=== PATIENT | male | born 1990 | race Caucasian/White ===

== ENCOUNTER 2016-09-22 12:46 | Emergency (ER) | payer SELFPAY ==
[~2016-09-22] VITALS: Ht 182.9 cm; Wt 129.0 kg
[~2016-09-22 12:46] MED LIST: ALBUTEROL SULF8.5 GM IH; ATARAX,VISTARIL25 MG PO; CLARITIN10 M3 PO; FLONASE16 G1 BOTH NARES; PREDNISONE20 MG PO; WELLBUTRIN XL150 MG PO
[2016-09-22 14:34] LABS: HEMATOCRIT 42.8 % (38.0-50.0); MCH 29.4 PG (29.0-34.0); MCHC 32.9 G/DL (30.0-36.0); MCV 89.4 FL (86-99); MEAN PLAT.VOLUME 9.4 uM^3 (9.0-12.4); PLATELET COUNT 231 K/uL (156-360); RBC DIS.WIDTH-CV 13.7 % (11.8-14.6); RBC DIS.WIDTH-SD 44.7 % (39-53); RED BLOOD COUNT 4.79 M/uL (4.00-5.50); WHITE BLOOD COUNT 10.4 K/uL (4.1-10.2)
[2016-09-22 14:43] LABS: CHLORIDE 106 mEq/L (99-109); POTASSIUM 4.4 mEq/L (3.7-5.4); SODIUM 139 mEq/L (136-147)
[2016-09-22 14:45] LABS: GLUCOSE 93 mg/dL (70-99)
[2016-09-22 14:46] LABS: ANION GAP 10 MEQ/L (2-14)
[2016-09-22 14:47] LABS: TOTAL BILIRUBIN 0.6 mg/dL (0.0-1.0)
[2016-09-22 14:48] LABS: SERUM ETHYL ALCOHOL < 10 mg/dL
[2016-09-22 14:49] LABS: ALKALINE PHOSPHATASE 61 IU/L (3-129); GFR ESTIMATE (CALCULATED) > 59 mL/min/
[2016-09-22 14:50] LABS: UREA NITROGEN (BUN) 5 mg/dL (9-23)
[2016-09-22] MEDS ORDERED: LIBRIUM25 MG PO (14:53)
[2016-09-22 15:07] VITALS: BP 134/80
== END 2016-09-22 15:08 | disposition home or self-care (01) ==
LOC: EME 12:46
PROVIDERS: Emergency Medicine
DX: F13.10 Sedative, hypnotic or anxiolytic abuse, uncomplicated (principal); F43.23 Adjustment disorder with mixed anxiety and depressed mood; F17.200 Nicotine dependence, unspecified, uncomplicated
CPT/HCPCS: 80053; 81003; 85027; 90839; 99281; 99284; G0480

== ENCOUNTER 2017-02-20 15:34 | Inpatient (IN) | payer OTHER ==
[~2017-02-20] VITALS: Ht 182.9 cm; Wt 122.8 kg
[~2017-02-20 15:34] MED LIST changes: +LIBRIUM25 MG PO
[2017-02-20 16:32] LABS: HEMATOCRIT 40.2 % (38.0-50.0); MCH 34.4 PG (29.0-34.0); MCHC 34.8 G/DL (30.0-36.0); MCV 98.8 FL (86-99); MEAN PLAT.VOLUME 8.8 uM^3 (9.0-12.4); PLATELET COUNT 325 K/uL (156-360); RBC DIS.WIDTH-CV 20.1 % (11.8-14.6); RBC DIS.WIDTH-SD 69.6 % (39-53); RED BLOOD COUNT 4.07 M/uL (4.00-5.50); WHITE BLOOD COUNT 12.6 K/uL (4.1-10.2)
[2017-02-20 16:42] LABS: CHLORIDE 108 mEq/L (99-109); POTASSIUM 3.7 mEq/L (3.7-5.4); SODIUM 139 mEq/L (136-147)
[2017-02-20 16:44] LABS: GLUCOSE 99 mg/dL (70-99)
[2017-02-20 16:46] LABS: ANION GAP 9 MEQ/L (2-14)
[2017-02-20 16:47] LABS: SERUM ETHYL ALCOHOL < 10 mg/dL
[2017-02-20 16:48] LABS: GFR ESTIMATE (CALCULATED) > 59 mL/min/
[2017-02-20 16:49] LABS: UREA NITROGEN (BUN) 5 mg/dL (9-23)
[2017-02-20 17:00] LABS: COCAINE NEGATIVE (150 ng/mL); METHAMPHETAMINE NEGATIVE (500 ng/mL); OPIATES (MORPHINE) NEGATIVE (100 ng/mL); PHENCYCLIDINE NEGATIVE (25 ng/mL); THC CANNABINOIDS NEGATIVE (50 ng/mL)
[2017-02-20 17:01] LABS: AMPHETAMINE NEGATIVE (500 ng/mL); BARBITURATES NEGATIVE (200 ng/mL); BENZODIAZEPINES NEGATIVE (150 ng/mL); INTERNAL CONTROLS VALID? YES; METHADONE NEGATIVE (200 ng/mL); OXYCODONE NEGATIVE (100 ng/mL); PROPOXYPHENE NEGATIVE (300 ng/mL); TRICYCLIC ANTIDEPRESSANTS NEGATIVE (300 ng/mL)
[2017-02-20] MEDS ORDERED: LEXAPRO20 MG PO (22:02)
[2017-02-20] MEDS ORDERED: METOPROLOL SUC100 MG PO (22:03)
[2017-02-20] MEDS ORDERED: BUSPAR5 MG PO (22:05)
[2017-02-20] MEDS ORDERED: NICORETTE2 M1 BC (22:05)
[2017-02-20] MEDS ORDERED: NICODERM CQ1 EAC2 TD (22:06)
[2017-02-20 22:10] VITALS: BP 132/94
[2017-02-21 08:07] VITALS: BP 141/70
[2017-02-21 16:24] VITALS: BP 124/63
[2017-02-22 07:53] VITALS: BP 126/67
[2017-02-22] MEDS ORDERED: BUSPAR10 MG PO (08:54)
[2017-02-22] MEDS ORDERED: BUPROPION HCL100 M1 PO (08:54)
== END 2017-02-22 10:35 | disposition home or self-care (01) | DRG 885 ==
LOC: EME 15:34 → 1WEST 19:10 → EDOF 19:10 → 1WEST 21:09 → ENRESERV 21:09 → 1WEST 02-22 10:35
DX: F33.1 Major depressive disorder, recurrent, moderate (principal); F11.20 Opioid dependence, uncomplicated; F13.20 Sedative, hypnotic or anxiolytic dependence, uncomplicated; R45.851 Suicidal ideations; F17.210 Nicotine dependence, cigarettes, uncomplicated; Z82.3 Family history of stroke; Z87.442 Personal history of urinary calculi
CPT/HCPCS: 80048; 85027; 90839; 99281; 99285; G0480